=== PATIENT | male | born 1970 | race Caucasian/White ===

== ENCOUNTER 2019-03-08 16:41 | Emergency (ER) | payer MEDICAID ==
[~2019-03-08] VITALS: Ht 180.3 cm; Wt 83.0 kg
[2019-03-08 16:49] VITALS: Ht 180.3 cm; Wt 83.0 kg
[2019-03-08 18:04] VITALS: BP 126/100
== END 2019-03-08 18:04 | disposition home or self-care (01) ==
LOC: ED 16:41
DX: S63.501A Unspecified sprain of right wrist, initial encounter (principal); W21.03XA Struck by baseball, initial encounter; Y93.64 Activity, baseball; Y92.89 Other specified places as the place of occurrence of the external cause; Y99.8 Other external cause status
CPT/HCPCS: J1885